=== PATIENT | female | born 1995 | race Caucasian/White ===

== ENCOUNTER 2023-01-04 02:41 | Emergency (ER) | payer BC, OTHER | END 2023-01-04 03:03 | disposition home or self-care (01) | LOC: ERS 02:41 | DX: T14.8XXA Other injury of unspecified body region, initial encounter (principal); W46.0XXA Contact with hypodermic needle, initial encounter | CPT/HCPCS: 99282 ==

== ENCOUNTER 2025-07-01 08:48 | Outpatient (CLI) | payer BC | END 2025-07-01 08:49 | disposition home or self-care (01) | LOC: ULT 08:48 | PROVIDERS: ATTEND Family Medicine | DX: R74.8 Abnormal levels of other serum enzymes (principal) | CPT/HCPCS: 76705 ==